=== PATIENT | female | born 1975 | race African-American/Black ===

== ENCOUNTER 2022-09-23 22:24 | Emergency (ER) | payer BC, MEDICAID ==
[~2022-09-23] VITALS: Ht 165.1 cm; Wt 68.0 kg
[~2022-09-23 22:24] MED LIST: AMPH30TA3 PO; OXYC30TA2 PO
--- NOTE | 2022-09-23 22:50 | NUR ---
Pt is noted alert, responsive as she came in C/O Two Abcessess to left buttocks that is draining yellow drainage with blood x1week and also C/O Generalized weakness. Pt care continue as awaits MD orders.
[2022-09-23] MEDS ORDERED: HYDROCODONE/APAP 5-325MG TABLET PO ONE (23:15)
[2022-09-23] MEDS ORDERED: LIDOCAINE 1%-EPI 1:100,000 20 ML VIAL IJ ONE (23:15)
[2022-09-23] MEDS ORDERED: CEphaleXIN 500 MG CAPSULE ONE (23:24)
[2022-09-23] MEDS ORDERED: LIDOCAINE 1%-EPI 1:100,000 20 ML VIAL ONE (23:24)
[2022-09-23] MEDS ORDERED: SULFAMETH/TRIMETH 800/160 MG TABLET ONE (23:24)
[2022-09-23] MEDS ORDERED: HYDROCODONE/APAP 5-325MG TABLET ONE (23:24)
[2022-09-23] MEDS ORDERED: SULFAMETH/TRIMETH 800/160 MG TABLET PO ONE (23:30)
[2022-09-23] MEDS ORDERED: CEphaleXIN 500 MG CAPSULE PO ONE (23:30)
--- NOTE | 2022-09-23 23:35 | NUR ---
Pt is care continue as MD at bedside with I/D therapy in progress after receiving [place] 5mg PO, Bacyrim x1TAB, Keflex 500 PO and Lidocain 1% given by MD.
[2022-09-23] MEDS ORDERED: HYDR-3980 PO (23:46)
[2022-09-23] MEDS ORDERED: CEPH500C2 PO (23:46)
[2022-09-23] MEDS ORDERED: SULF1TAB48 PO (23:46)
--- NOTE | 2022-09-23 23:57 | NUR ---
Pt is noted off the unit , stable as she is been discharged to home with all discharged instructions given.
[2022-09-24] VITALS: BP 124/70; TEMP 98; O2SAT 95
[2022-09-24] MEDS ORDERED: SULF1TAB48 PO (02:58)
[2022-09-24] MEDS ORDERED: HYDR-3980 PO (02:58)
[2022-09-24] MEDS ORDERED: CEPH500C2 PO (02:58)
[2022-09-24] MEDS ORDERED: TRAM50TA2 PO (03:14)
== END 2022-09-24 00:02 | disposition home or self-care (01) ==
LOC: ER 22:27
DX: L02.31 Cutaneous abscess of buttock (principal); J45.909 Unspecified asthma, uncomplicated; Z79.899 Other long term (current) drug therapy
CPT/HCPCS: 99284; 10060; J3490; A4663

== ENCOUNTER 2023-11-05 04:39 | Emergency (ER) | payer BC ==
[~2023-11-05] VITALS: Ht 165.1 cm; Wt 65.8 kg
[~2023-11-05 04:39] MED LIST changes: +CEPH500C2 PO; +HYDR-3980 PO; +SULF1TAB48 PO; +TRAM50TA2 PO
[2023-11-05 05:36] LABS: BASOPHILS % (AUTO) 0.6 % (0.0-2.0); EOSINOPHILS # (AUTO) 0.3 K/uL (0.0-0.7); EOSINOPHILS % (AUTO) 5.2 % (0.0-7.0); HEMOGLOBIN 12.7 g/dL (10.9-14.3); LYMPHOCYTES % (AUTO) 32.8 % (20.5-51.5); MEAN CORPUSCULAR HEMOGLOBIN 31.4 uug (24.7-32.8); MEAN CORPUSCULAR HGB CONC 33 g/dL (32.3-35.6); MEAN CORPUSCULAR VOLUME 96.4 fL (75.5-95.3); MONOCYTES # (AUTO) 0.4 K/uL (0.1-1.30); MONOCYTES % (AUTO) 7.1 % (0.0-11.0); NEUTROPHILS # (AUTO) 3.4 K/uL (1.8-8.9); NEUTROPHILS % (AUTO) 54.3 % (38.5-71.5); PLATELET COUNT (AUTO) 325 K/uL (179-408); RED BLOOD CELL COUNT(AUTO) 4.04 MIL/uL (3.63-4.92); RED CELL DISTRIBUTION WIDTH 13.9 % (12.3-17.7); WHITE BLOOD COUNT (AUTO) 6.2 K/uL (3.8-11.8)
[2023-11-05 05:40] LABS: DIFFERENTIAL COMMENT 1
[2023-11-05 05:47] LABS: CALCIUM 8.9 mg/dL (8.5-10.1); CREATININE 0.9 mg/dL (0.6-1.3)
[2023-11-05 05:52] LABS: ALBUMIN 3.5 g/dL (3.4-5.0); BILIRUBIN,DIRECT 0.1 mg/dL (0.0-0.2); BILIRUBIN,TOTAL 0.3 mg/dL (0.2-1.0); TOTAL PROTEIN, SERUM 7.4 g/dL (6.4-8.2)
[2023-11-05] MEDS ORDERED: SULF1TAB48 PO (08:15)
[2023-11-05 08:24] VITALS: BP 119/89; O2SAT 95
== END 2023-11-05 08:29 | disposition home or self-care (01) ==
LOC: ER 04:51
DX: L97.929 Non-pressure chronic ulcer of unspecified part of left lower leg with unspecified severity (principal); R22.42 Localized swelling, mass and lump, left lower limb; J45.909 Unspecified asthma, uncomplicated; Z98.890 Other specified postprocedural states; Z79.891 Long term (current) use of opiate analgesic; Z79.899 Other long term (current) drug therapy
CPT/HCPCS: 36415; 85025; 93005; A4606; A4663